=== PATIENT | female | born 1945 | race Caucasian/White ===

== ENCOUNTER 2019-08-04 10:44 | Outpatient (CLI) | payer OTHER, SELFPAY ==
--- NOTE | ~2019-08-04 | US_ITS ---
EXAMINATION: US joint non vasc comp LT DATE: 08/04/2019 11:34 INDICATION: Left lower limb soft tissue mass. TECHNIQUE: Multiple grayscale and Doppler ultrasound images of the left lower limb were obtained. COMPARISON: None FINDINGS: There is no abnormal mass in the left lower limb in the distal medial thigh in the patient' s area of concern. IMPRESSION: 1. No abnormal mass in left lower limb in the patient's area of concern. 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
== END 2019-08-04 10:45 | disposition home or self-care (01) ==
LOC: ANHIMG 10:47
PROVIDERS: PCP Physician Assistant; Visit Provider Physician Assistant
DX: R22.42 Localized swelling, mass and lump, left lower limb (principal)
CPT/HCPCS: 76881

== ENCOUNTER 2020-11-21 12:48 | Outpatient (CLI) | payer OTHER, SELFPAY ==
--- NOTE | ~2020-11-21 | DEXA_ITS ---
Bone Density Report Name: Claudia Padilla Age: 75 Sex: Female Ethnicity: White Date of : 1945 Indication: osteopenia; inflammatory bowel disease; Referring Provider: KRYSTIN, ELICEO Study: Bone densitometry was performed. Exam Date: November 21, 2020 Accession number: [id number] Bone Density: Region BMD T-score Z-score Classification AP Spine (L1-L4) 1.212 1.5 4.0 Normal Femoral Neck (Left) 0.596 -2.3 -0.1 Osteopenia Total Hip (Left) 0.798 -1.2 0.7 Osteopenia Total Hip Bilateral Avg 0.763 -1.5 0.4 Osteopenia Femoral Neck (Right) 0.528 -2.9 -0.7 Osteoporosis Total Hip (Right) 0.727 -1.8 0.1 Osteopenia World Health Organization criteria for BMD impression classify patients as: Normal (T-score at or above -1.0), Osteopenia (T-score between -1.0 and -2.5), or Osteoporosis (T-score at or below -2.5). 10-year Fracture Risk: FRAX not reported because: Some T-score for Spine Total or Hip Total or Femoral Neck at or below -2.5 Previous Exams: Region Exam Age BMD T-score BMD Change BMD Change Date g/cm2 vs Baseline vs Previous AP Spine(L1-L4) 11/21/2020 75 1.212 1.5 0.130(12.0%)# 0.130(12.0%)# 03/11/2003 57 1.081 0.3 Total Hip(Left) 11/21/2020 75 0.798 -1.2 0.078(10.9%)# 0.078(10.9%)# 03/11/2003 57 0.720 -1.8 Total Hip(Right) 11/21/2020 75 0.727 -1.8 0.011(1.5%)# 0.011(1.5%)# 03/11/2003 57 0.717 -1.8 *Denotes significance at 95% confidence level, LSC for AP Spine = 0.022 g/cm2, LSC for Total Hip = 0.027 g/cm2 Clinical Information Provided by Patient: Has used the following medications: Vitamin D, Calcium Has the following medical conditions: Inflammatory bowel diseases Patient maximum height was 62 No regular weight bearing exercise Does not regularly consume dairy products Onset of menses at age 11 Number of children 2 Impression: The patient has osteoporosis, based on the Right Femoral Neck T-score. No significant bone loss was observed. Discussion: INCREASED RISK OF FRACTURE. BONE DENSITY IS UNDESIRABLY LOW AT ONE OR MORE SKELETAL SITES, CONSISTENT WITH POSTMENOPAUSAL OSTEOPOROSIS. This patient's lowest T-score meets the World Health Organization's (WHO) criteria for osteoporosis at one or more sites (T-score -2.5 or below). In untreated patients, the risk of osteoporotic fracture increases approximately two-fold for each 1.0 SD decrease in T-score. Low bone density is not the only risk factor for fracture; also consider
== END 2020-11-21 12:49 | disposition home or self-care (01) ==
LOC: ANHIMG 12:49
PROVIDERS: PCP Physician Assistant; Visit Provider Physician Assistant
DX: Z78.0 Asymptomatic menopausal state (principal); M85.89 Other specified disorders of bone density and structure, multiple sites; M81.0 Age-related osteoporosis without current pathological fracture
CPT/HCPCS: 77080

== ENCOUNTER → 2024-11-18 12:38 | Outpatient (CLI) | payer OTHER, SELFPAY ==
--- NOTE | ~2024-11-18 | XR_ITS ---
Right wrist Technique: PA, oblique, lateral, and ulnar deviation views were obtained. Clinical History: Pain Findings: Probable small acute nondisplaced fracture of the styloid process of the distal radius. The re is mild degenerative change of the first CMC joint. Soft tissues are unremarkable. Impression: Probable small acute, nondisplaced fracture the tip of the radial styloid process. Mild degenerative change of the first CMC joint. Reviewed, dictated and finalized at location . Impression: Probable small acute, nondisplaced fracture the tip of the radial styloid proce ss. Mild degenerative change of the first CMC joint.
== END ==
LOC: EXPCRAD 12:40
PROVIDERS: PCP Physician Assistant; Visit Provider Physician Assistant
DX: M19.031 Primary osteoarthritis, right wrist (principal)
CPT/HCPCS: 73110

== ENCOUNTER 2025-01-15 14:15 | Outpatient (RCR) | payer OTHER, MEDICARE, SELFPAY ==
--- NOTE | 2025-01-04 15:25 | OTOPEVAL1 ---
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 She reports a recent history of a right radial styloid fracture at the end of October. Ever since she has been experiencing intermittent pain at the base of the thumb when baking. She is right handed. Reported Pain Level Pain Score 0: Self Report Additional Pain Score Comments Patient reports 0/10 pain today and 0/10 pain in the last week. Assessment OT Clinical Summary Patient referred to OT with dx of bilateral 1st CMC OA. She presents with no pain. Recent history of (R) radial styloid fracture. She demonstrates residual stiffness on the right wrist and reduced fire control technician g strength affecting her ability to resume baking. Educated on active and passive ROM as well as fire control technician g strengthening with putty. Showed patient what a thumb spica looks like and the purpose. During functional tasks the patient appears to use her thumb with good mechanics. Patient wishes to not wear a splint at this time. Decided not to fabricate one today due to patient's wishes as well as her not experiencing any pain for the last several weeks. Continued skilled OT indicated for HEP progression and therapeutic exercise to facilitate improved functional ROM/flexibility and strength to return to baking. Plan of Care Interventions Therapeutic Exercise,Manual Therapy,Neuro Re- education,Therapeutic Activities,Hot Pack/Cold Pack OT Services Indicated Yes Treatment Frequency and 1x/week for 4 visits. Duration Pt ride dependent and they are not able to attend 2x/week. These treatments will address the objective and functional deficits as defined above. The patient will be advanced safely and appropriately in order for the patient to progress towards his/her prior level of function. Additional exercises will be introduced and as well as a comprehensive home exercise program upon discharge, if needed, ?to ensure carryover of functional gains achieved in the clinic. This treatment plan has been reviewed and agreement upon by the patient.
--- NOTE | 2025-01-04 15:25 | OPREHPOC ---
Outpatient Therapy Plan of Care This is a Multidisciplinary Plan of Care that may contain components documented by all disciplines (PT, OT, and ST.) OT Problem 1 OT Problem #1 Knowledge Deficit OT Goal 1 Goal / Goal Update Patient to be independent with instructed materials. Target Visit 4 OT Problem 2 OT Problem #2 Impaired Range of Motion OT Goal 1 Goal / Goal Update Patient to increase (R) wrist active ROM to improve flexibility for ADLs: 1. active wrist extension to [address] to 20 Target Visit 4 OT Problem 3 OT Problem #3 Impaired Strength OT Goal 1 Goal / Goal Update Patient to increase (R) UE strength for ADLs: 1. be able to progress (R) wrist strengthening to 2 lbs. 2. be able to progress (R) site physician strength to 68 lbs . Target Visit 4
--- NOTE | 2025-01-18 09:34 | OTOPDC ---
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 She reports a recent history of a right radial styloid fracture at the end of October. Ever since she has been experiencing intermittent pain at the base of the thumb when baking. She is right handed. Assessment OT Clinical Summary - Patient called and cancelled all of her therapy appointments due to not wanting to pay her co-pay. - Patient referred to OT with dx of bilateral 1st CMC OA. She was evaluated on 01/04/25 and attended 1 follow up appointment. She has been working on her [employer] IP HEP. She declined using the paraffin and therapy putty due to having texture issues. She regularly was reporting no pain, but had not resumed baking yet.
== END 2025-01-18 10:59 | disposition home or self-care (01) ==
LOC: ANHOT 14:15
PROVIDERS: PCP Physician Assistant; Visit Provider Physician Assistant Surgical
DX: M18.0 Bilateral primary osteoarthritis of first carpometacarpal joints (principal)
CPT/HCPCS: 97110; 97140; 97165